=== PATIENT | male | born 1990 | race Caucasian/White ===

== ENCOUNTER 2020-07-20 17:16 | Emergency (ER) | payer SELFPAY ==
--- NOTE | 2020-07-20 19:43 | ER ---
Nurse's Notes [facility] Name: Paris Reyes Age: 30 yrs Sex: Male : 1990 Arrival Date: 07/20/2020 Time: 17:23 Bed Waiting Private MD: Diagnosis: Presentation: 07/20 17:33 Chief complaint: Patient states: Feels hot and dizzy today. And my anxiety got high. ca1 Cough x 2 days. Feels feverish. Coronavirus screen: Client denies travel out of the [place] in the last 14 days. cough unrelated to allergies, fever, Client presents with at least one sign or symptom that may indicate coronavirus-19. Standard/surgical mask placed on the client. Provider contacted for isolation considerations. The client denies any previous COVID testing. Ebola Screen: Patient negative for fever greater than or equal to 101.5 degrees Fahrenheit, and additional compatible Ebola Virus Disease symptoms Patient denies exposure to infectious person. Patient denies travel to an Ebola-affected area in the 21 days before illness onset. No symptoms or risks identified at this time. Initial Sepsis Screen: Does the patient meet any 2 criteria? No. Patient's initial sepsis screen is negative. Does the patient have a suspected source of infection? No. Patient's initial sepsis screen is negative. Risk Assessment: Do you want to hurt yourself or someone else? Patient reports no desire to harm self or others. Onset of symptoms was July 20, 2020. 17:33 Method Of Arrival: Ambulatory ca1 17:33 Method Of Arrival: Ambulatory ca1 17:33 Acuity: FRENCH 3 ca1 Historical: - Allergies: 17:36 No Known Allergies; ca1 - Home Meds: 17:36 None [Active]; ca1 - PMHx: 17:36 None; ca1 - PSHx: 17:36 None; ca1 - Immunization history:: Adult Immunizations up to date, Flu vaccine is not up to date. It has been more than one year since last vaccine. - Social history:: Smoking status: Patient reports the use of cigarette tobacco products, smokes one-half pack cigarettes per day. Assessment: 19:24 Reassessment: patient not around. mg2 Vital Signs: 17:33 BP 140 / 94; Pulse 101; Resp 16 S; Temp 98.6(O); Pulse Ox 100% on R/A; Weight 86.18 kg ca1 (R); Height 5 ft. 10 in. (177.80 cm) (R); Pain 0/10; 17:33 Body Mass Index 27.26 (86.18 kg, 177.80 cm) ca1 ED Course: 17:23 Patient arrived in ED. ds1 17:36 Triage completed. ca1 17:36 Arm band placed on right wrist. ca1 17:38 Flu Sent. ca1 17:40 Flu Sent. ca1 19:10 Patient's name was called from ER lobby. No response. Unable to locate patient. Will ca1 disposition as left without being seen by a provider. 19:21 Percy Charles MD is Attending Physician. pkl Administered Medications: No medications were administered Outcome: 19:42 Patient left the ED. ca1 Signatures: Percy Charles MD MD pkl Adriana Robertson ds1 Arturo Moran, RN RN mg2 Liz Clemens RN RN ca1
[2020-07-20 19:48] VITALS: BP 140/94; TEMP 98.6; O2SAT 100
== END 2020-07-20 19:42 | disposition left against medical advice (07) ==
LOC: ER 17:16
DX: Z53.21 Procedure and treatment not carried out due to patient leaving prior to being seen by health care provider (principal)
CPT/HCPCS: 87804; 99282